=== PATIENT | female | born 1980 | race Caucasian/White ===

== ENCOUNTER 2019-02-27 20:29 | Emergency (ER) | payer SELFPAY ==
--- NOTE | 2019-02-27 21:06 | EDM.PDOC ---
ED HPI GENERAL MEDICAL PROBLEM - General Chief Complaint: PASSENGER CONDUCTOR Problem Stated Complaint: AND CRAMPING Time Seen by Provider: 02/27/19 20:47 Source of Information: Reports: Patient History Limitations: Reports: No Limitations - History of Present Illness INITIAL COMMENTS - FREE TEXT/NARRATIVE: HISTORY AND PHYSICAL: History of present illness: Patient is a 38-year-old female presents to the ED today with concern of lower abdominal cramping and . Patient states she has not received care this and does not know how far along she is. Patient states starting today she started feeling cramping every 30 minutes. Patient states she does have another kid and feels that this is similar to when she gave . Patient denies any vaginal bleeding. Patient states she just moved [place] and does not have an PASSENGER CONDUCTOR established. Patient denies fever, chills, chest pain, shortness of breath, or cough. Denies headache, neck stiff ness, change in vision, syncope, or near syncope. Denies nausea, vomiting, diarrhea, constipation, or dysuria. Has not noted any blood in urine or stool. Patient has been eating and drinking appropriately. Review of systems: As per history of present illness and below otherwise all systems reviewed and negative. Past medical history: As per history of present illness and as reviewed below otherwise noncontributory. Surgical history: As per history of present illness and as reviewed below otherwise noncontributory. Social history: See social history for further information Family history: As per history of present illness and as reviewed below otherwise noncontributory. Physical exam: General: Patient is alert, oriented, and in no acute distress. Patient sitting comfortably on exam table. HEENT: Atraumatic, normocephalic, pupils equal and reactive bilaterally, negative for conjunctival pallor or scleral icterus, mucous membranes moist, TMs normal bilaterally, throat clear, neck supple, nontender, trachea midline. No drooling or trismus noted. No meningeal signs. No hot potato voice noted. Lungs: Clear to auscultation, breath sounds equal bilaterally, chest nontender. Heart: S1S2, regular rate and rhythm without overt murmur Abdomen: Gravid. Soft, nondistended, mild tenderness to lower abdomen. Negative for masses or hepatosplenomegaly. Negative for costovertebral tenderness. Pelvis: Stable nontender. Genitourinary: Deferred. Rectal: Deferred. Skin: Intact, warm, dry. No lesions or rashes noted. Extremities: Atraumatic, negative for cords or calf pain. Neurovascular unremarkable. Neuro: Awake, alert, oriented. Cranial nerves II through XII unremarkable. Cerebellum unremarkable. Motor and sensory unremarkable throughout. Exam nonfocal. Notes: Dr. Paul verbally involved in patient care. Discussed the importance for follow-up with an PASSENGER CONDUCTOR Voices understanding and is agreeable to plan of care. Denies any further questions or concerns at this time. Diagnostics: CBC, CMP, UA, urine hCG, hCG Quant, transvaginal ultrasound, Rh/Blood type Therapeutics: None Prescription: None Impression: Lower abdominal pain and Single live intrauterine , 16 weeks Placenta previa Plan: 1. Please start and/or continue to take your vitamin with folic acid once daily. 2. Pelvic rest until cleared by your OBGYN (no tampons, sex, etc...) 3. Tylenol as needed for pain management. This is safe to use in . 4. Follow up with your PASSENGER CONDUCTOR as discussed. Return to the ED as needed and as discussed. Definitive disposition and diagnosis as appropriate pending reevaluation and review of above. Abdomen Pain Score (Numeric/FACES): 9 - Related Data Allergies Allergy/AdvReac Type Severity Reaction Status Date / Time No Known Allergies Allergy Verified 02/27/19 23:15 Home Meds: Home Meds . [No Known Home Meds] 02/27/19 [History] ED ROS GENERAL - Review of Systems Review Of Systems: ROS reveals no pertinent complaints other than HPI. ED EXAM, GENERAL - Physical Exam Exam: See Below (see dictation) Course - Vital Signs Last Recorded V/S: Last Vital Signs Temp 36.6 C 02/27/19 23:10 Pulse 68 02/27/19 23:10 Resp 18 02/27/19 23:10 BP 95/52 L 02/27/19 23:10 Pulse Ox 100 02/27/19 23:10 - Orders/Labs/Meds Labs: Laboratory Tests 02/27/19 02/27/19 02/27/19 Range/Units 20:56 21:10 21:10 WBC 12.02 H (4.0-11.0) K/uL RBC 3.80 L (4.30-5.90) M/uL Hgb 11.8 L (12.0-16.0) g/dL Hct 35.0 L (36.0-46.0) % MCV 92.1 (80.0-98.0) fL MCH 31.1 (27.0-32.0) pg MCHC 33.7 (31.0-37.0) g/dL RDW Std Deviation 46.8 (28.0-62.0) fl RDW Coeff of Handy 14 (11.0-15.0) % Plt Count 278 (150-400) K/uL MPV 10.30 (7.40-12.00) fL Neut % (Auto) 73.1 (48.0-80.0) % Lymph % (Auto) 17.6 (16.0-40.0) % [place] % (Auto) 7.2 (0.0-15.0) % Eos % (Auto) 1.7 (0.0-7.0) % Baso % (Auto) 0.4 (0.0-1.5) % Neut # (Auto) 8.8 H (1.4-5.7) K/uL Lymph # (Auto) 2.1 (0.6-2.4) K/uL [place] # (Auto) 0.9 H (0.0-0.8) K/uL Eos # (Auto) 0.2 (0.0-0.7) K/uL Baso # (Auto) 0.1 (0.0-0.1) K/uL Nucleated RBC % 0.0 /100WBC Nucleated RBCs # 0 K/uL Sodium 134 L (136-145) mmol/L Potassium 3.7 (3.5-5.1) mmol/L Chloride 104 (98-107) mmol/L Carbon Dioxide 26.0 (21.0-32.0) mmol/L BUN 7 (7.0-18.0) mg/dL Creatinine 0.6 (0.6-1.0) mg/dL Est Cr Clr Drug Dosing TNP Estimated GFR (MDRD) > 60.0 ml/min Glucose 86 (74-106) mg/dL Calcium 9.2 (8.5-10.1) mg/dL Total Bilirubin 0.1 L (0.2-1.0) mg/dL AST 18 (15-37) IU/L ALT 18 (14-63) IU/L Alkaline Phosphatase 84 (46-116) U/L Total Protein 6.8 (6.4-8.2) g/dL Albumin 3.0 L (3.4-5.0) g/dL Globulin 3.8 (2.6-4.0) g/dL Albumin/Globulin Ratio 0.8 L (0.9-1.6) HCG, Qual (NEG) HCG, Quant 05163.0 mIU/mL Urine Color YELLOW Urine Appearance CLEAR Urine pH 6.0 (5.0-8.0) Ur Specific [place] 1.010 (1.001-1.035) Urine Protein NEGATIVE (NEGATIVE) mg/dL Urine Glucose (UA) NEGATIVE (NEGATIVE) mg/dL Urine Ketones NEGATIVE (NEGATIVE) mg/dL Urine Occult Blood NEGATIVE (NEGATIVE) Urine Nitrite NEGATIVE (NEGATIVE) Urine Bilirubin NEGATIVE (NEGATIVE) Urine Urobilinogen 0.2 (<2.0) EU/dL Ur Leukocyte Esterase NEGATIVE (NEGATIVE) Blood Type 02/27/19 02/27/19 Range/Units 21:10 21:10 WBC (4.0-11.0) K/uL RBC (4.30-5.90) M/uL Hgb (12.0-16.0) g/dL Hct (36.0-46.0) % MCV (80.0-98.0) fL MCH (27.0-32.0) pg MCHC (31.0-37.0) g/dL RDW Std Deviation (28.0-62.0) fl RDW Coeff of Handy (11.0-15.0) % Plt Count (150-400) K/uL MPV (7.40-12.00) fL Neut % (Auto) (48.0-80.0) % Lymph % (Auto) (16.0-40.0) % [place] % (Auto) (0.0-15.0) % Eos % (Auto) (0.0-7.0) % Baso % (Auto) (0.0-1.5) % Neut # (Auto) (1.4-5.7) K/uL Lymph # (Auto) (0.6-2.4) K/uL [place] # (Auto) (0.0-0.8) K/uL Eos # (Auto) (0.0-0.7) K/uL Baso # (Auto) (0.0-0.1) K/uL Nucleated RBC % /100WBC Nucleated RBCs # K/uL Sodium (136-145) mmol/L Potassium (3.5-5.1) mmol/L Chloride (98-107) mmol/L Carbon Dioxide (21.0-32.0) mmol/L BUN (7.0-18.0) mg/dL Creatinine (0.6-1.0) mg/dL Est Cr Clr Drug Dosing Estimated GFR (MDRD) ml/min Glucose (74-106) mg/dL Calcium (8.5-10.1) mg/dL Total Bilirubin (0.2-1.0) mg/dL AST (15-37) IU/L ALT (14-63) IU/L Alkaline Phosphatase (46-116) U/L Total Protein (6.4-8.2) g/dL Albumin (3.4-5.0) g/dL Globulin (2.6-4.0) g/dL Albumin/Globulin Ratio (0.9-1.6) HCG, Qual POSITIVE H (NEG) HCG, Quant mIU/mL Urine Color Urine Appearance Urine pH (5.0-8.0) Ur Specific [place] (1.001-1.035) Urine Protein (NEGATIVE) mg/dL Urine Glucose (UA) (NEGATIVE) mg/dL Urine Ketones (NEGATIVE) mg/dL Urine Occult Blood (NEGATIVE) Urine Nitrite (NEGATIVE) Urine Bilirubin (NEGATIVE) Urine Urobilinogen (<2.0) EU/dL Ur Leukocyte Esterase (NEGATIVE) Blood Type O POSITIVE Departure - Departure Time of Disposition: 23:28 Disposition: Home, Self-Care 01 Clinical Impression: related abdominal pain of lower quadrant, antepartum Qualifiers: Weeks of gestation: 16 weeks Qualified Code(s): Z3A.16 - 16 weeks gestation of Placenta previa Qualifiers: Trimester: second trimester Qualified Code(s): O44.02 - Complete placenta previa NOS or without hemorrhage, second trimester - Discharge Information Referrals: PCP,None [Primary Care Provider] - Forms: ED Department Discharge Additional Instructions: The following information is given to patients seen in the emergency department who are being discharged to home. This information is to outline your options for follow-up care. We provide all patients seen in our emergency department with a follow-up referral. The need for follow-up, as well as the timing and circumstances, are variable depending upon the specifics of your emergency department visit. If you don't have a primary care physician on staff, we will provide you with a referral. We always advise you to contact your personal physician following an emergency department visit to inform them of the circumstance of the visit and for follow-up with them and/or the need for any referrals to a consulting specialist. The emergency department will also refer you to a specialist when appropriate. This referral assures that you have the opportunity for follow-up care with a specialist. All of these measure are taken in an effort to provide you with optimal care, which includes your follow-up. Under all circumstances we always encourage you to contact your private physician who remains a resource for coordinating your care. When calling for follow-up care, please make the office aware that this follow-up is from your recent emergency room visit. If for any reason you are refused follow-up, please contact the [facility] Emergency Department at and asked to speak to the emergency department charge nurse. [facility] [address] [place] [id number] [facility] [address] [place] [id number] [facility] [address] [place] [address] 1. Please start and/or continue to take your vitamin with folic acid once daily. 2. Pelvic rest until cleared by your OBGYN (no tampons, sex, etc...) 3. Tylenol as needed for pain management. This is safe to use in . 4. Follow up with your PASSENGER CONDUCTOR as discussed. Return to the ED as needed and as discussed.
[2019-02-27 22:19] LABS: CHLORIDE,CL 104 mmol/L (98-107); SODIUM,NA 134 mmol/L (136-145)
--- NOTE | 2019-02-27 23:16 | US ---
INDICATION: Pelvic pain TECHNIQUE: A limited transabdominal obstetrical ultrasound COMPARISON: None available FINDINGS: A single live intrauterine gestation is seen. There is cardiac activity with a heart rate of 154 BPM. Estimated gestational age based on biparietal diameter, head circumference, abdominal circumference and femur length is 16 weeks and 1 day. anatomy is not evaluated. The placenta is posterior. The inferior placental tip apparently overlies the internal cervical os, although a portion of this could be related to a regional contraction. The cervix is measured at 3.4 cm, however this may be underestimated. Amniotic fluid volume is not measured. The left ovary measures 3.7 x 2.8 x 3.9 cm. Left ovarian Doppler flow is documented. The right ovary is not seen. No significant free fluid is visualized. IMPRESSION: A single live intrauterine gestation at 16 weeks and 1 day by sonographic evaluation. Apparent placenta previa, although this could be partially related to a regional contraction. Recommend follow-up evaluation, as well as a full anatomical survey at 18-20 weeks. Nonvisualization of the right ovary Dictated by Bro Reyes MD @ 02/27/2019 11:14:25 PM Dictated by: Bro Reyes MD @ 02/27/2019 23:14:58 (Electronically Signed)
== END 2019-02-27 23:45 | disposition home or self-care (01) ==
LOC: MW.ED 20:29
DX: O99.89 Other specified diseases and conditions complicating pregnancy, childbirth and the puerperium (principal); O44.02 Complete placenta previa NOS or without hemorrhage, second trimester; R10.30 Lower abdominal pain, unspecified; Z3A.16 16 weeks gestation of pregnancy
CPT/HCPCS: 76815; 76815-26; 80053; 81003; 84702; 84703; 85025; 86900; 86901; 99284; 99284-25